=== PATIENT | male | born 1940 | race Caucasian/White ===

== ENCOUNTER 2016-09-14 04:15 | Emergency (ER) | payer OTHER ==
[2016-09-14] MEDS ORDERED: NS 1,000 ML IV ONE (04:29)
--- NOTE | 2016-09-14 04:29 | EDPHY ---
H & P Stated Complaint: cold sx cough worsening x 24 hr HPI/ROS: HPI CHIEF COMPLAINT: Cough, upper respiratory tract infection HISTORY OF PRESENT ILLNESS: This patient very pleasant 76-year-old male, significant past medical history for diabetes, presents to the emergency room for 30 in the morning with less than 24 hours of upper respiratory tract infection type symptoms. Patient tells me around 7:00 p.m. last night he developed a cough and has progressively gotten worse throughout the night. Patient states that he does have some productive cough however, unsure about sputum color. As he did not see it. Denies chest pain or pleuritic pain. Denies fever nausea vomiting diarrhea or significant chills. The main reason they brought him in was ongoing cough. Past Medical History: Diabetes Past Surgical History: denies recent surgical history Social History: denies use of drugs alcohol tobacco products, lives locally in [place] Family History: noncontributory ROS REVIEW OF SYSTEMS: A comprehensive 10 point review of systems is otherwise negative aside from elements mentioned in the history of present illness. Exam Constitutional appears well nontoxic, triage nursing summary reviewed, vital signs reviewed, awake/alert. Eyes normal conjunctivae and sclera, EOMI, PERRLA. HENT normal inspection, atraumatic, moist mucus membranes, no epistaxis, neck supple/ no meningismus, no raccoon eyes. Respiratory faint wheezing bilaterally, with coughing has a bronchitic sounding cough, no crackles or rales Cardiovascular rate normal, regular rhythm, no murmur, no edema, distal pulses normal. Gastrointestinal soft, non-tender, no rebound, no guarding, normal bowel sounds, no distension, no pulsatile mass. Genitourinary no CVA tenderness. Musculoskeletal no midline vertebral tenderness, full range of motion, no calf swelling, no tenderness of extremities, no meningismus, good pulses, neurovascularly intact. Skin pink, warm, & dry, no rash, skin atraumatic. Neurologic awake, alert and oriented x 3, AAOx3, moves all 4 extremities equally, motor intact, sensory intact, CN II-XII intact, normal cerebellar, normal vision, normal speech. Psychiatric normal mood/affect. Heme/Lymph/Immune no lymphadenopathy. Differential Diagnosis: Includes but is not limited to in a particular order upper respiratory tract infection, viral pneumonia, bacterial pneumonia, influenza, doubt acute coronary syndrome, doubt CHF Medical Decision Making: Patient here in the emergency room appears well nontoxic not having any chest pain but complaining of a cough less than 24 hours. Productive cough and bronchitic sounding. Faint wheezing bilaterally. Patient had a two view chest x-ray to rule out significant pneumonia, patient be given a DuoNeb breathing treatment. Test for influenza and re-evaluate. Re-evaluation: ED x-ray chest two view: I do not appreciate a focal pneumonia. Lung perez are clear. Image interpreted by myself. [id number]: re-evaluation at this time patient is resting comfortably he did have a DuoNeb breathing treatment feeling much better after this. Vital signs have been reviewed no hypoxia no fever. Feels much better would like to go home. He specifically requesting discharge. X-ray has been reviewed I do not appreciate pneumonia. Clinically on exam I think is upper respiratory tract infection viral syndrome. He has been given a prescription for cough medicine guaifenesin, azithromycin, albuterol. Does understand drink lots of fluids return to the ER if he develops worsening shortness of breath, high fever, vomiting or pain. Source: Patient - Personal History Current Tetanus/Diphtheria Vaccine: Yes Current Tetanus Diphtheria and Acellular Pertussis (TDAP): Yes - Medical/Surgical History Hx Asthma: No Hx Chronic Respiratory Disease: No Hx Diabetes: Yes Hx Cardiac Disease: Yes Hx Renal Disease: No Hx Cirrhosis: No Hx Alcoholism: No Hx HIV/AIDS: No Hx Splenectomy or Spleen Trauma: No Other PMH: appy. hernia repair - Social History Smoking Status: Never smoked Constitutional: Initial Vital Signs Temperature (C) 36.5 C 09/14/16 04:20 Heart Rate 94 09/14/16 04:20 Respiratory Rate 18 09/14/16 04:20 Blood Pressure 129/65 H 09/14/16 04:20 O2 Sat (%) 91 L 09/14/16 04:20 O2 Delivery Mode Room Air Allergies/Adverse Reactions: No Known Allergies Allergy (Unverified 09/14/16 04:18) Home Medications: Medication Instructions Recorded AZITHROMYCIN [Z-PACK] 250 mg PO DAILY #6 tab 09/14/16 Albuterol [Proventil Inhaler HFA 1 - 2 puffs IH Q4H #1 mdi 09/14/16 (*)] Clopidogrel 09/14/16 Guaifenesin [Guaifenesin ER] 600 mg PO BID #14 tab.er.12h 09/14/16 Levothyroxine 09/14/16 Lipitor 20 mg (*) 09/14/16 Lisinopril 09/14/16 Metoprolol Succinate 09/14/16 Tamsulosin HCl 09/14/16 Medical Decision Making - Data Points Laboratory Results: 09/14/16 04:35 Influenza Typ A,B (DFA) NEGATIVE FOR FLU (NEGATIVE) Medications Given: Discontinued Medications Albuterol/Ipratropium (Duoneb) 3 ml IH EDNOW ONE Stop: 09/14/16 04:35 Last Admin: 09/14/16 04:38 Dose: 3 ml Departure - Departure Disposition: Home, Routine, Self-Care Clinical Impression: Acute bronchitis Qualifiers: Bronchitis organism: unspecified organism Qualified Code(s): J20.9 - Acute bronchitis, unspecified Upper respiratory tract infection Qualifiers: URI type: unspecified URI Qualified Code(s): J06.9 - Acute upper respiratory infection, unspecified Condition: Good Instructions: Upper Respiratory Infection (ED), Acute Bronchitis (ED), Viral Syndrome (ED) Additional Instructions: 1. Make sure to drink lots of fluids stay well-hydrated. 2.Return emergency room if you have worsening symptoms includes worsening shortness of breath, cough, fever, vomiting. Referrals: DARRION SALAS [Other] - As per Instructions Prescriptions: Albuterol [Proventil Inhaler HFA (*)] 1 - 2 puffs IH Q4H #1 mdi AZITHROMYCIN [Z-PACK] 250 mg PO DAILY #6 tab Guaifenesin [Guaifenesin ER] 600 mg PO BID #14 tab.er.12h
[2016-09-14 04:30] VITALS: TEMP 97.7
[2016-09-14] MEDS ORDERED: IPRATROPIUM/ALBUTEROL 3 ML DEYVIAL ONE (04:33)
[2016-09-14] MEDS ORDERED: IPRATROPIUM/ALBUTEROL 3 ML DEYVIAL IH ONE (04:34)
[2016-09-14 06:20] VITALS: BP 129/87; PULSE 99; RESP 16; O2SAT 93
== END 2016-09-14 06:20 | disposition home or self-care (01) ==
DX: J20.9 Acute bronchitis, unspecified (principal); J06.9 Acute upper respiratory infection, unspecified; E11.9 Type 2 diabetes mellitus without complications